=== PATIENT | female | born 1985 | race Caucasian/White ===

== ENCOUNTER 2022-12-24 10:10 | Outpatient (CLI) | payer BC, SELFPAY ==
--- OUTSIDE RECORDS SUMMARY | 2022-12-24 10:13 | XMS_ITS ---
Author Name Britt Gonzalez Address [address] [place] [address] Organization [facility] Address [address] [place] [address] Care Team Providers Care Assistant Professor Of Surgery Name Role Phone Britt Gonzalez Unavailable [phone] PROBLEMS Type Condition ICD9-CM Code [id number] Code Onset Dates Condition Status SNOMED Code Problem Syncope and collapse R55 Active [id number] ALLERGIES Substance Reaction Event Type Date Status Ativan Unknown Drug Allergy Nov, Active Benzodiazepines Unknown Drug Allergy Nov, Activ e Adhesive rash Drug Allergy Nov, Active Ambien Unknown Drug Allergy Nov, Active ENCOUNTERS Encounter Location Date Diagnosis [facility] [address] [place] [address] Nov, Syncope and collapse R55 [facility] [address] [place] [phone] Oct, [facility] [address] [place] [address] Feb, [facility] [address] [place] [phone] Jan, [facility] [address] [place] [address] Jan, [facility] [address] [place] [address] Nov, [facility] [address] [place] [address] Oct, [facility] [address] [place] [address] Oct, [facility] [address] [place] [address] Aug, IMMUNIZATIONS No Known Immunizations SOCIAL HISTORY Never Assessed REASON FOR REFERRAL FUNCTIONAL STATUS PLAN OF CARE Activity Details Follow Up 1 Year Reason: Future Test HEPATIC FUNCTION VICENTE EL 20221118 Future Test CBC (H/H, RBC, INDIC ES, WBC, PLT) 20221118 Future Test LAMOTRIGINE 20221118 VITAL SIGNS Weight 68.2 kg 2022-11-18 Weight 64.8 kg 2021-10-25 Height 65 in 2022-11-18 Height 65 in 2021-10-25 Heart Rate 90 /min 2021-10-25 BMI 25.02 kg/m2 2022-11-18 BMI 23.77 kg/m2 2021-10-25 Blood pressure systolic 98 mm Hg Blood pressure diastolic 63 mm Hg 2021-10 MEDICATIONS Medication Instructions Dosage Frequency Start Date End Date Duration Status lamoTRIgine ER 100 MG orally twice a day 1 tablet 12h 30 days Active QUEtiapine Fumarate 100 MG Orally Once a day 1 tablet at bedtime 24h 30 day(s) Active busPIRone HCl 10 MG Orally twice a day (bid) 1 tablet Active Ambien CR 12.5 MG Orally Once a day 1 tablet at bedtime as needed 24h Active Vistaril 25 MG Orally Once a day 1 capsule at bedtime as needed 24h 30 day(s) Active PROCEDURES Procedure Date Ordered Result Body Site VEEG EA 12-26HR INTMT MNTR November 29, 2021 EEG CONT REC W/VID SEGMENT PRODUCER November 29, 2021 EEG PHY/QHP EA INCR W/VEEG November 28, 2021 HOSPITAL DISCHARGE DAY Dec 04, 2021 VEEG EA 12-26HR INTMT MNTR November 28, 2021 PSYCL TST EVAL PHYS/QHP EA November 29, 2021 [facility] November 29, 2021 PSYCL/NRPSYC TST PHY/QHP November 29, 2021 VEEG EA 12-26HR CONT MNTR December 01, 2021 VEEG EA 12-26HR CONT MNTR November 30, 2021 EEG PHY/QHP EA INCR W/VEEG December 02, 2021 VEEG EA 12-26HR INTAZ MNTR Dec 03, 2021 VEEG EA 12-26HR INTAZ MNTR December 02, 2021 EEG PHY/QHP EA INCR W/VEEG November 30, 2021 PSYCL TST EVAL PHYS/QHP November 29, 2021 EEG PHY/QHP EA INCR W/VEEG December 01, 2021 VEEG EA 12-26HR INTMT MNTR November 30, 2021 EEG PHYS/QHP 2-12 HR W/VEEG Dec 04, 2021 VEEG 2-12 HR INTAZ MNTR Dec 04, 2021 EEG PHY/QHP EA INCR W/VEEG Dec 03, 2021 EEG CONT REC W/VID SEGMENT PRODUCER November 28, 2021 EEG PHY/QHP EA INCR W/VEEG November 29, 2021 RESULTS Name Result Date Reference Range HEPATIC FUNCTION PANEL 2022-12-02 PROTEIN, TOTAL ALBUMIN GLOBULIN ALBUMIN/GLOBULIN RATIO BILIRUBIN, TOTAL BILIRUBIN, DIRECT BILIRUBIN, INDIRECT ALKALINE PHOSPHATASE 74 AST 19 ALT 11 CBC (H/H, RBC, INDICES, WBC, PLT) 2022-11 MPV WHITE BLOOD CELL COUNT RED BLOOD CELL COUNT HEMOGLOBIN 12.0 HEMATOCRIT MCV MCH MCHC RDW PLATELET COUNT 175 LAMOTRIGINE 2022-12-02 LAMOTRIGINE 7.2 REASON FOR VISIT Yearly F/U, Needs appt and meds refills , lamoTRIgine ER 100 MG Tablet Extended Release 24 Hour, Follow-up for unspecified spells, SCANNED IN - Medical records request, ARRIVE AT 9:15, New patient referral, EEG and review of results, Keely-new patient referral, [address], New pt referral Insurance Providers Health Insurance Type Health Plan Insurance Address Health Plan Insurance Phone Health Plan Insurance Name Health Plan Coverage Dates Member ID Patient Relationship to Subscriber Patient Address Patient Phone Patient Name Patient Date of Subscriber ID Subscriber Name Subscriber Date of Group No [facility] [id number] [address] [address] [facility] [id number] [facility] [place] en [id number]
== END 2022-12-24 10:11 | disposition home or self-care (01) ==
PROVIDERS: PCP Family Medicine; Visit Provider Family Medicine
DX: Z00.00 Encounter for general adult medical examination without abnormal findings (principal); N95.1 Menopausal and female climacteric states; R53.83 Other fatigue; R68.82 Decreased libido; F41.9 Anxiety disorder, unspecified; D64.9 Anemia, unspecified
CPT/HCPCS: 80053; 82607; 82728; 83001; 83540; 83550; 84443

== ENCOUNTER 2023-01-24 13:54 | Outpatient (CLI) | payer BC, SELFPAY ==
--- OUTSIDE RECORDS SUMMARY | 2023-01-24 14:05 | XMS_ITS ---
Author Name Britt Gonzalez Address [address] [place] [address] Organization [facility] Address [address] [place] [address] Care Team Providers Care Carpet Floor Layer Apprentice Name Role Phone Britt Gonzalez Unavailable [phone] PROBLEMS Type Condition ICD9-CM Code [id number] Code Onset Dates Condition Status SNOMED Code Problem Syncope and collapse R55 Active [id number] ALLERGIES Substance Reaction Event Type Date Status Ativan Unknown Drug Allergy Nov, Active Benzodiazepines Unknown Drug Allergy Nov, Activ e Adhesive rash Drug Allergy Nov, Active Ambien Unknown Drug Allergy Nov, Active ENCOUNTERS Encounter Location Date Diagnosis [facility] [address] [place] [address] Nov, Syncope and collapse R55 [facility] [address] [place] [phone] Oct, [facility] [address] [place] [address] Feb, [facility] [address] [place] [phone] Jan, [facility] [address] [place] [address] Jan, [facility] [address] [place] [address] Nov, [facility] [address] [place] [address] Oct, [facility] [address] [place] [address] Oct, [facility] [address] [place] [address] Aug, IMMUNIZATIONS No Known Immunizations SOCIAL HISTORY [...] November 29, 2021 EEG CONT REC W/VID MOLECULAR TECHNOLOGIST November 29, 2021 EEG PHY/QHP EA INCR W/VEEG November 28, 2021 HOSPITAL DISCHARGE DAY Dec 04, 2021 VEEG EA 12-26HR INTMT MNTR November 28, 2021 PSYCL TST EVAL PHYS/QHP EA November 29, 2021 [facility] 29, 2021 PSYCL/NRPSYC TST PHY/QHP November 29, 2021 VEEG EA 12-26HR CONT MNTR December 01, 2021 VEEG EA 12-26HR CONT MNTR November 30, 2021 EEG PHY/QHP EA INCR W/VEEG December 02, 2021 VEEG EA 12-26HR INTPR MNTR Dec 03, 2021 VEEG EA 12-26HR INTPR MNTR December 02, 2021 EEG PHY/QHP EA INCR W/VEEG November 30, 2021 PSYCL TST EVAL PHYS/QHP November 29, 2021 EEG PHY/QHP EA INCR W/VEEG December 01, 2021 VEEG EA 12-26HR INTMT MNTR November 30, 2021 EEG PHYS/QHP 2-12 HR W/VEEG Dec 04, 2021 VEEG 2-12 HR INTPR MNTR Dec 04, 2021 EEG PHY/QHP EA INCR W/VEEG Dec 03, 2021 EEG CONT REC W/VID MOLECULAR TECHNOLOGIST November 28, 2021 EEG PHY/QHP EA INCR [...] Subscriber Name Subscriber Date of Group No [facility] [id number] [address] [address] [facility] [id number] [facility] [place] en [id number]
== END 2023-01-24 13:55 | disposition home or self-care (01) ==
PROVIDERS: PCP Family Medicine; Visit Provider Obstetrics & Gynecology
DX: R68.82 Decreased libido (principal); D64.9 Anemia, unspecified; R53.83 Other fatigue; E28.39 Other primary ovarian failure; F52.0 Hypoactive sexual desire disorder
CPT/HCPCS: 81243; 84270; 84402; 84403; 86255; 86376; 88262

== ENCOUNTER 2023-02-05 13:34 | Outpatient (CLI) | payer BC, SELFPAY ==
--- NOTE | 2023-02-05 14:00 | CRLHL7_ITS ---
For Patients: As a result of the Cures Act, medical imaging exams and procedure reports are released immediately into your electronic medical record. You may view this report before your referring provider. If you have questions, please contact your health care provider. DXA BONE MINERAL DENSITY STUDY, 02/07/2023 Reason for exam: Primary ovarian failure. Current height (inches): 65.0 Weight (lbs.): 162.0 Menopause age: 28 Ethnicity: White 1. Have you had a previous hip or vertebral fracture? Yes. 2. Have you had any fractures during your adult life which did not result from significant trauma (e.g., auto accident)? Yes. 3. Did either of your parents have a hip fracture? No. 4. Do you smoke? No. 5. Have you ever taken Glucocorticoids? No. 6. Do you have rheumatoid arthritis? No. 7. Do you have secondary osteoporosis? No. 8. Do you drink 3 or more alcoholic drinks per day? No. 9. Are you being treated for osteoporosis? No. 10. Have you ever taken any of the following medications: Actonel, Evista, Fosamax, Miacalcin, Reclast, Boniva, Forteo, HRT (i.e., estrogen/hormone therapy), Protelos, Prolia, Vitamin D, Calcium, other ??? please specify. ANSWER: Yes; HRT. 11. Do you have any of the following medical conditions: Anorexia or bulimia, asthma or emphysema, end stage renal disease, hyperparathyroidism, any seizure disorders, cancer, inflammatory bowel diseases, hysterectomy, other ??? please specify. ANSWER: Yes; Seizure disorder, hysterectomy. 12. What was your maximum height (inches)? 65. 13. Do you perform weightbearing exercise regularly? No. 14. Do you regularly consume dairy products? Yes. 15. Do you drink caffeinated beverages? Yes. 16. At what age did your period start? 9. 17. Are you premenopausal? No. 18. How many full-term pregnancies have you had? 2. 19. Have you ever missed your period for more than 6 months in a row (not including or menopause)? No. TECHNIQUE: Bone mineral density study was performed using the Vimessa. FINDINGS: The results of the study expressed as bone mineral density (BMD) are as follows: Lumbar Spine L1 to L4: BMD: 0.850 g/cm2. T-score: -1.8. Z-score: -1.6. Neck Left: BMD: 0.711 g/cm2. T-score: -1.2. Z-score: -1.0. Right: BMD: 0.762 g/cm2. T-score: -0.8. Z-score: -0.5. Total Left: BMD: 0.918 g/cm2. T-score: -0.2. Z-score: 0.0. Right: BMD: 0.880 g/cm2. T-score: -0.5. Z-score: -0.4. IMPRESSION: Osteopenia. DAVID NAJERA M.D. Diagnostic Radiologist [email or web address] Transcribed: 4:[address]/Dictated by: David Najera MD @ 02/07/2023 3:34:00 PM (Electronically Signed)
== END 2023-02-05 13:35 | disposition home or self-care (01) ==
LOC: RAD 13:35
PROVIDERS: PCP Family Medicine; Visit Provider Obstetrics & Gynecology
DX: E28.39 Other primary ovarian failure (principal); M85.89 Other specified disorders of bone density and structure, multiple sites
CPT/HCPCS: 77080

== ENCOUNTER 2023-03-07 08:17 | Outpatient (CLI) | payer BC, SELFPAY ==
--- OUTSIDE RECORDS SUMMARY | 2023-03-12 07:13 | XMS_ITS | Patient Health Record ---
Author Name Unknown Organization Unknown Care Team Providers Care Check Totaler Name Role Phone Coby FLOYD, Nicolasa Primary Care Provider Britt Lopes Unavailable [phone] ALLERGIES Allergen (clinical drug ingredient) Drug/Non Drug Allergy documented on EMR Reaction Allergy Type Onset Date Status zolpidem Ambien Unknown Drug Allergy Active lorazepam Ativan Unknown Drug Allergy Active Adhesive rash Allergy Active benzodiazepine (FN) Benzodiazepines Unknown Drug Allergy Active RESULTS Component Value Reference Range Notes HEPATIC FUNCTION PANEL Reviewed date:12/03/2022 04:23:19 PM Interpretation: Performing Lab: Notes/Report: PROTEIN, TOTAL ALBUMIN GLOBULIN ALBUMIN/GLOBULIN RATIO BILIRUBIN, TOTAL BILIRUBIN, DIRECT BILIRUBIN, INDIRECT ALKALINE PHOSPHATASE 74 AST 19 ALT 11 CBC (H/H, RBC, INDICES, WBC, PLT) Reviewed date:12/03/2022 04:24:45 PM Interpretation: Performing Lab: Notes/Report: MPV WHITE BLOOD CELL COUNT RED BLOOD CELL COUNT HEMOGLOBIN 12.0 HEMATOCRIT MCV MCH MCHC RDW PLATELET COUNT 175 LAMOTRIGINE Reviewed date:12/03/2022 04:22:19 PM Interpretation: Performing Lab: Notes/Report: LAMOTRIGINE 7.2 REASON FOR REFERRAL No Information MEDICATIONS Medication SIG (Take, Route, Frequency, Duration) Notes Start Date End Date Status busPIRone HCl 10 MG 1 tablet Orally twic e a day (bid) Active Ambien CR 12.5 MG 1 tablet at bedtime as needed Orally Once a day Active lamoTRIgine ER 100 MG 1 tablet orally tw ice a day for 30 days Active QUEtiapine Fumarate 100 MG 1 tablet at b edtime Orally Once a day for 30 day(s) Active Vistaril 25 MG 1 capsule at bedtime as needed Orally Once a day for 30 day(s) Active VITAL SIGNS Height-cm 165.1 cm 11/18/2022 Height 65 in 11/18/2022 Weight 68.2 kg 11/18/2022 BMI 25.02 kg/m2 11/18/2022 Encounters Encounter Location Date Provider Diagnosis [facility] [address] [place] [address] 11/18/2022 Britt Gonzalez Syncope and collapse R55 [facility] [address] [place] [address] 10/28/2022 Britt Gonzalez ASSESSMENTS Encounter Date Diagnosis Assessment Notes Treatment Notes Treatment Clinical Notes 11/18/2022 Syncope and collapse (ICD-10 - R55) PLAN OF TREATMENT No Information Insurance Providers Payer Name Payer Address Payer Phone Subscriber Number Group Number Insured Name Patient Relationship to Insured Coverage Start Date Coverage End Date [facility] [id number] [address] [address] [place], [place] [phone] [id number] Ethan philippe Yaron Self - patient is the insured MEDICAL (GENERAL) HISTORY Medical History History ICD Code Recurrent syncopal episodes Generalized anxiety disorder Menorrhagia Attention deficit hyperactivity disorder (ADHD) Anxiety and depression Atrial fibrillation Arrhythmia S/P section Nephrolithiasis Dysfunctional labor distress affecting management of m other, antepartum Idiopathic thrombocythemia, Has not had this problem since 8 years old Kidney stones History of smoking, She quit smoking michelle und 2000 Lymphocytic colitis Weight loss Lumbar laminectomy Hysterectomy C-sections x2 Ureter stent Surgical History Surgery Date(Month/Year) Hysterectomy, 07/14/2013. APPENDECTOMY, 2008. SECTION x2, 2011, 2013. COLONOSCOPY SCREENING x3. LAMINECTOMY. LUI AND BSO. TUBAL LIGATION, 2013. Urinary stent. WISDOM TEETH EXTRACTION Hospitalization History Reason Date(Month/Year) Syncope - [facility], 11/22/2019.
== END 2023-03-07 08:18 | disposition home or self-care (01) ==
LOC: NFLDREF 03-12 07:11
PROVIDERS: PCP Family Medicine; Referring Provider Family Medicine; Visit Provider Obstetrics & Gynecology
DX: F52.0 Hypoactive sexual desire disorder (principal)
CPT/HCPCS: 84403

== ENCOUNTER 2024-02-10 15:13 | Outpatient (CLI) | payer BC, SELFPAY ==
--- OUTSIDE RECORDS SUMMARY | 2024-02-10 15:16 | XMS_ITS | Clinical Summary ---
Author Organization [facility] Address [place], [place] [address] Care Team Providers Care Solar Panel Technician Name Role Phone Nicolasa Tenorio MD Primary Care Provider + Allergies Active Allergy Reactions Criticality Noted Date Comments Adhesive Rash Medium 08/03/2010 Zolpidem *Unknown 06/22/2012 When mixed with Ativan she passes out Lorazepam 04/11/2009 When mixed with Ambien She Passes out Medications Medication Sig Dispensed Refills Start Date End Date Status busPIRone (BUSPAR) 10 mg tablet Take 10 mg by mouth in the morning and 10 mg in the evening. 06/05/2021 Active QUEtiapine (SEROQUEL) 100 mg tablet Take 100 mg by mouth at bedtime. 10/30/2021 Active zolpidem CR (AMBIEN CR) 12.5 mg Extended-Release tablet Take 12.5 mg by mouth at bedtime. 10/16/2021 Active busPIRone (BUSPAR) 10 mg tablet Take 10 mg by mouth once daily if needed for Anxiety. Active lamoTRIgine (LAMICTAL XR) 100 mg Extended-Release tabletIndications:Spel l of loss of consciousness Take 1 Tablet (100 mg) by mouth twice daily 60 Tablet 2 12/03/2021 Active Active Problems Problem Noted Date Diagnosed Date Spells of loss of consciousness 11/30/2021 Frequent falls 11/30/2021 Generalized anxiety disorder 10/05/2018 Menorrhagia 07/15/2013 S/P section 07/30/2012 Nephrolithiasis 06/22/2012 Dysfunctional labor 07/30/2010 distress affecting management of mother, a ntepartum 07/30/2010 Immunizations Name Administration Dates Next Due DTP 08/21/1988,08/27/1985 DTaP 07/10/2006,07/26/2005 Hepatitis B (Adult) 06/15/2000,12/27/1999,1998 Hepatitis B, Unspecified 06/15/2000,12/27/1999,0 11/10/1998 Influenza Virus, Unspecified 02/16/2013,04/03/20 12,01/31/2010 Influenza, High-dose Inactivated 02/16/2013 Influenza, IIV3 (Age 6-35 mos) 02/07/2018,2012 Influenza, IIV3 (Age >=3 years) 04/03/2012 MMR 01/02/1995,12/03/1988,01/14/1985 Oral Polio Vaccine 08/21/1988,08/27/1985 TD, UNSPECIFIED 05/05/1998 Td (Age >=7 Years) 05/05/1998 Td, Preservative Free (age >= 7 Years) 9 Tdap 08/03/2010,07/10/2006 Family History Medical History Relation Name Comments Good Health Daughter Alcohol/Drug Father Psychiatric illness Father cd issue s Psychiatric illness Maternal Grandfather Cancer Maternal Grandmother Skin CA Diabetes Maternal Grandmother Psychiatric illness Paternal Grandmother Good Health Son Clotting disorder No Family History Relation Name Status Comments Brother 1 Alive Brother 2 Alive Daughter Father Alive Maternal Grandfather Alive Maternal Grandmother Alive Mother Alive Paternal Grandfather Alive Paternal Grandmother Alive Sister 1 Alive Sister 2 Alive Son Social History Tobacco Use Types Packs/Day Years Used Date Smoking Tobacco: Former Cigarettes Q uit: 06/22/1999 Smokeless Tobacco: Never Tobacco Cessation:Counseling Given: Yes Alcohol Use Standard Drinks/Week Comments No 0 (1 standard drink = 0.6 oz pur e alcohol) PHQ-2 Answer Date Recorded PHQ-2 Score 0 10/05/2018 Social Connections Answer Date Recorded Frequency of Communication with Friends and Fami ly Not on file 02/18/2023 Financial Resource Strain Answer Date R ecorded Difficulty of Paying Living Expenses Not on file 05/05/2021 Difficulty of Paying Living Expenses Not on file 05/05/2021 Sex and Gender Information Value Date Recorded Sex Assigned at Not on file Gender Identity Not on file Sexual Orientation Not on file Obstetrics History Para Term AB IAB SAB Ectopic Multiple Livin g Live Births 2 2 0 2 0 0 0 0 0 2 2 Date Outcome GA Total Labor Labor/2nd/3rd Weight Sex Type Anes PTL Krysta A1 A5 Name Clin 011 36w 6d 3.05 kg (6 lb 11.6 oz) M C-Sec tion Spinal Livin g 9 9 Trig Delivery Location[facility] Comments:PROM 013 36w 4d 2.88 kg (6 lb 5.6 oz) F C-Sec tion Spinal N Livin g 9 10 BG Comments:SGA, failed B PP Last Filed Vital Signs Vital Sign Reading Time Taken Comments Blood Pressure 104/53 12/04/2021 9:00 AM CDT Pulse 79 12/04/2021 9:00 AM CDT Temperature 36.7 ??C (98 ??F) 12/04/2021 9:00 AM CDT Respiratory Rate 18 12/04/2021 9:00 AM CDT Oxygen Saturation 98% 12/04/2021 9:00 AM CDT Inhaled Oxygen Concentration - - Weight 64.4 kg (142 lb) 11/28/2021 10:00 AM CDT Height 167.6 cm (5' 6) 11/28/2021 10:00 AM CDT Body Mass Index 22.92 11/28/2021 10:00 AM CDT Plan of Treatment Health Maintenance Due Date Last Done Comments HIV for age 15-65 08/07/1998 Hepatitis C screening for age 18-79 08/07/2001 Depression screening for age 12+ 10/06/2019 10/05/2018, 09/10/2018, 09/01/2018, Additional history exists BMI (ht and wt on same day) for age 18+ 03/22/2021 03/22/2020, 03/03/2020, 12/13/2019, Additional history exists COVID-19 vaccine series (2023- season) 2024 Influenza for age 9-49 01/04/2024 10/15/201 3, 04/03/2012, 04/03/2012, Additional history exists Tetanus booster 06/22/2028 06/22/2018, 04/0 05/2010, 07/10/2006, Additional history exists Tdap Completed 08/03/2010, 07/10/2006 Pneumococcal series for age 6-64 Aged Out No longer eligible based on patient's age to complete this topic Advance Directives * Full Code (Latest Code Status on File) Date Activated Date Inactivated Comments 11/28/2021 9:26 AM 12/04/2021 1:57 PM Question Answer Comments Code Status Discussion: Other * Full Code Date Activated Date Inactivated Comments 12/23/2019 2:14 PM 12/23/2019 8:12 PM Question Answer Comments Code Status Discussion: Not Discussed * Full Code Date Activated Date Inactivated Comments 05/10/2019 8:06 AM 05/10/2019 12:48 PM Question Answer Comments Code Status Discussion: Per Existing Order * Full Code Date Activated Date Inactivated Comments 09/14/2015 6:22 PM 09/15/2015 8:35 PM * Full Code Date Activated Date Inactivated Comments 07/14/2013 2:07 PM 07/18/2013 1:50 PM Care Teams Solar Panel Technician Relationship Specialty Start Date End Date Nicolasa Tenorio MD [address] [place] [address] PCP - General Family Practice 11/03/19
--- OUTSIDE RECORDS SUMMARY | 2024-02-10 15:16 | XMS_ITS | Referral Summary ---
Author Organization [place] Address [address] [place] [address] Care Team Providers Care City Route Driver Name Role Phone [facility] [place] Primary [facility] Pro vider Allergies Active Allergy Reactions Criticality Noted Date Comments Zolpidem 06/21/2015 Benzodiazepines Fatigue 12/14/2003 Ativan Medications Medication Sig Dispensed Refills Start Date End Date Status AMOXICILLIN PO Active Active Problems Problem Noted Date Diagnosed Date Depressive disorder, not elsewhere classified Insomnia 04/13/2005 Overview: Problem list name updated by automated process. Provider to review Immunizations Name Administration Dates Next Due HepB 06/15/2000,12/27/1999,11/10/1998 Influenza (IIV3) PF 03/29/2002,04/16/2001 TD,PF 7+ (Tenivac) 12/31/1995 Social History Tobacco Use Types Packs/Day Years Used Date Smoking Tobacco: Former Comments:smoked casually for a very short time Alcohol Use Standard Drinks/Week Comments Yes 0 (1 standard drink = 0.6 oz pur e alcohol) <once/monthly Adolescent Education Answer Date Record ed Getting School Help Needed Not on file 02/09 Sex and Gender Information Value Date Recorded Sex Assigned at Not on file Gender Identity Not on file Sexual Orientation Not on file Last Filed Vital Signs Vital Sign Reading Time Taken Comments Blood Pressure 118/80 08/21/2021 7:57 PM CDT Pulse 101 08/21/2021 2:14 PM CDT Temperature 36.9 ??C (98.4 ??F) 08/21/2021 2:14 PM CD T Respiratory Rate 18 08/21/2021 2:14 PM CDT Oxygen Saturation 99% 08/21/2021 7:57 PM CDT Inhaled Oxygen Concentration - - Weight 60.3 kg (133 lb) 03/22/2005 10:15 AM TIME STUDY OBSERVER Height 165.1 cm (5' 5) 03/02/2005 8:00 AM CDT Body Mass Index 22.13 03/02/2005 8:00 AM CDT Plan of Treatment Not on file Procedures Procedure Name Priority Date/Time Associated Diagnosis Comments COMPREHENSIVE METABOLIC PANEL STAT 06/21/2015 11:29 PM TIME STUDY OBSERVER CL AFF A.M.A. LIPID PANEL Routine 03/02/2005 8:45 AM CDT Routine Medical Exam HCL PAP THIN LAYER SCREEN Routine 03/02/2005 12:00 AM CDT Routine Medical Exam from Last 3 Months or Most Recently Relevant to Health Maintenance Results * Comprehensive metabolic panel (06/21/2015 11:29 PM TIME STUDY OBSERVER) Sodium 139 133 - 144 mmol/L [facility] Potassium 3.8 3.4 - 5.3 mmol/L [facility] Comment:Specimen slightly he molyzed, potassium may be falsely elevated Chloride 106 94 - 109 mmol/L [facility] Carbon Dioxide 27 20 - 32 mmol/L [facility] Anion Gap 6 3 - 14 mmol/L [facility] Glucose 90 70 - 99 mg/dL [facility] Urea Nitrogen 11 7 - 30 mg/dL [facility] Creatinine 0.56 0.52 - 1.04 mg/dL [facility] GFR Estimate >90 Non GFR Calc >60 mL/min/1. 7m2 [facility] GFR Estimate If Black >90 GFR Calc >60 mL/min/1. 7m2 [facility] Calcium 8.6 8.5 - 10.1 mg/dL [facility] Bilirubin Total 0.2 0.2 - 1.3 mg/dL [facility] Albumin 4.0 3.4 - 5.0 g/dL [facility] Protein Total 8.2 6.8 - 8.8 g/dL [facility] Alkaline Phosphatase 74 40 - 150 U/L [facility] ALT 29 0 - 50 U/L [facility] AST 20 0 - 45 U/L [facility] Comment:Reviewed, acceptable Blood specimen (specimen) 06/21/2015 11:29 PM TIME STUDY OBSERVER 06/21/2015 11:49 PM TIME STUDY OBSERVER Isha Ruiz MD LAB - BLOOD ORDERABL ES Performing Organization Address City/[facility] Co de Phone Number [facility] [address] [phone] * A.M.A. LIPID PANEL (03/02/2005 8:45 AM CDT) Cholesterol 126 0 - 200 mg/dL [facility] Comment: Cholesterol Reference Range: <200 ??The NCEP recommends further ? evaluation of: ? 1. ??Patients with cholesterol ? greater than 200 mg/dL ? if additional risk factors ? are present. ? 2. ??All patients with a ? cholesterol greater than ? 240 mg/dL. Triglycerides 43 0 - 150 mg/dL [facility] HDL Cholesterol 52 >40 mg/dL [facility] LDL Cholesterol Calculated 66 0 - 129 mg/dL [facility] VLDL-Cholesterol 9 0 - 30 mg/dL [facility] Cholesterol/HDL Ratio 2.4 0.0 - 5.0 [facility] 03/02/2005 8:45 AM CDT 03/02/2005 8:50 AM CDT Kelly Matthew PA-C LABORATORY Performing Organization Address City/[facility]/ZIP Co de Phone Number [facility] * (ABNORMAL) A THIN LAYER PAP SCREEN (03/02/2005 12:00 AM CDT) PAP LSIL(A) COPATH Copath Report Patient Name: ANDRES WOOD MR#: [id number] Specimen #: [id number] Collected: 03/02/2005 Received: 03/04/2005 Reported: 03/07/2005 10:41 Ordering Phy(s): KELLY MATTHEW SPECIMEN/STAIN PROCESS: Pap thin layer prep screening (SurePath) ? Pap-Cyto x 1, Reflex HPV x 1 SOURCE: Cervical, endocervical Pap thin layer prep screening (SurePath) SPECIMEN ADEQUACY: Satisfactory for evaluation. -Transitional zone component present. CYTOLOGIC INTERPRETATION: Epithelial Cell Abnormality: ??Squamous Cell: ??Low-grade squamous intraepithelial lesion (LSIL) encompassing: ??HPV/ mild dysplasia/ JAYMIE 1. Electronically signed out by: Kareem Landin M.D. Processed and screened at [facility], [facility] CLINICAL HISTORY: injection Depo-Provera, Previous normal pap Date of Last Pap: 01-06, TESTING LAB LOCATION: [address] ??[phone] COLLECTION SITE: Client: ??[facility] Location: CRFP (R) COPATH 03/02/2005 03/04/2005 10: 17 AM TIME STUDY OBSERVER Kelly Matthew PA-C LABORATORY COPATH from Last 3 Months or Most Recently Relevant to Health Maintenance Care Teams City Route Driver Relationship Specialty Start Date End Date [facility], [facility] [address] [place] [address] PCP - General 06/22/15
--- OUTSIDE RECORDS SUMMARY | 2024-02-10 15:16 | XMS_ITS | Encounter Summary ---
Author Organization [place] Address [address] [place] [address] Care Team Providers Care Jira Administrator Name Role Phone [facility] Primary Care Pro vider Encounter Details Date Type Department Care Team (Late st Contact Info) Description 08/22/2021 Documentation Only INTERFACED REPORT Unknown, Provider Social History Tobacco Use Types Packs/Day Years Used Date Smoking Tobacco: Former Comments:smoked casually for a very short time Alcohol Use Standard Drinks/Week Comments Yes 0 (1 standard drink = 0.6 oz pur e alcohol) <once/monthly Sex and Gender Information Value Date Recorded Sex Assigned at Not on file Gender Identity Not on file Sexual Orientation Not on file COVID-19 Exposure Response Date Recorded In the last 10 days, have yo u been in contact with someone who was confirmed or suspected to have Coronavirus/COVID-19? No / Unsure 08/21/2021 2:08 PM CDT documented as of this encounter Plan of Treatment Not on file documented as of this encounter Visit Diagnoses Not on filedocumented in this encounter Care Teams Jira Administrator Relationship Specialty Start Date End Date [facility] [address] [place] [address] PCP - General 06/22/15 documented as of this encounter
--- OUTSIDE RECORDS SUMMARY | 2024-02-10 15:16 | XMS_ITS | Clinical Summary ---
Author Organization [place] Address [address] [place] [address] Care Team Providers Care Tablet Making Machine Operator Helper Name Role Phone [facility] [place] Primary Care Pro vider Allergies Active Allergy [...] (IIV3) PF 03/29/2002,04/16/2001 TD,PF 7+ (Tenivac) 12/31/1995 Family History Medical History Relation Comments Hypertension Maternal Aunt Diabetes Maternal Grandfather great Breast Cancer Maternal Grandmother great Diabetes Maternal Grandmother great Genetic Disorder Mother narcolepsy Cancer - colorectal No family hx of Cerebrovascular Disease No family hx of Relation Status Comments Father Alive Maternal Aunt Maternal Grandfather Maternal Grandmother Mother Alive Social History Tobacco Use Types Packs/Day Years [...] 60.3 kg (133 lb) 03/22/2005 10:15 AM ELECTRICIAN DECK Height 165.1 cm (5' 5) 03/02/2005 8:00 AM CDT Body Mass Index 22.13 03/02/2005 8:00 AM CDT Plan of Treatment Health Maintenance Due Date Last Done Comments ADVANCE CARE PLANNING 1983 ANNUAL REVIEW OF HM ORDERS 1983 MAMMO SCREENING 1983 HIV SCREENING 08/07/1998 HEPATITIS C SCREENING 08/07/2001 YEARLY PREVENTIVE VISIT 03/02/2006 03/02/2005, 01/09 PAP 03/02/2008 03/02/2005, 01/10/2004 GLUCOSE 06/21/2018 06/21/2015, 02/13/2005 PHQ-2 (once per calendar year) 2023 LIPID 2023 03/02/2005 COVID-19 Vaccine ( season) 2024 INFLUENZA VACCINE (#1) 2024 9, 02/07/2018, 02/19/2013, Additional history exists DTAP/TDAP/TD IMMUNIZATION (8 - Td or Tdap) 06/22/2028 06/22/2018, 08/03/2010, 07/10/2006, Additional history exists HEPATITIS B IMMUNIZATION Completed 001, 06/15/2000, 06/15/2000, Additional history exists HPV IMMUNIZATION Aged Out No longer e ligible based on patient's age to complete this topic MENINGITIS IMMUNIZATION Aged Out No l onger eligible based on patient's age to complete this topic Pneumococcal Vaccine: Pediatrics (0 to 5 Years) and At-Risk Patients (6 to 64 Years) Aged Out No longer eligible based on patient's age to complete this topic RSV MONOCLONAL ANTIBODY Aged Out No l onger eligible based on patient's age to complete this topic Procedures Procedure Name Priority Date/Time Associated Diagnosis Comments COMPREHENSIVE METABOLIC PANEL STAT 06/21/2015 11:29 PM ELECTRICIAN DECK CL AFF A.M.A. LIPID PANEL Routine 03/02/2005 8:45 AM CDT Routine Medical Exam HCL PAP THIN LAYER SCREEN Routine 03/02/2005 12:00 AM CDT Routine Medical Exam from Last 3 Months or Most Recently Relevant to Health Maintenance Results * Comprehensive metabolic panel (06/21/2015 11:29 PM ELECTRICIAN DECK) Sodium 139 133 - 144 mmol/L [facility] Potassium 3.8 3.4 - 5.3 mmol/L [facility] Comment:Specimen slightly he molyzed, potassium may be falsely elevated Chloride 106 94 - 109 mmol/L [facility] Carbon Dioxide 27 20 - 32 mmol/L [facility] Anion Gap 6 3 - 14 mmol/L [facility] Glucose 90 70 - 99 mg/dL [facility] Urea Nitrogen 11 7 - 30 mg/dL [facility] Creatinine 0.56 0.52 - 1.04 mg/dL [facility] GFR Estimate >90 Non GFR Calc >60 mL/min/1. 7m2 [facility] GFR Estimate If Black >90 GFR Calc >60 mL/min/1. 7m2 [facility] Calcium 8.6 8.5 - 10.1 mg/dL [facility] Bilirubin Total 0.2 0.2 - 1.3 mg/dL [facility] Albumin 4.0 3.4 - 5.0 g/dL [facility] Protein Total 8.2 6.8 - 8.8 g/dL [facility] Alkaline Phosphatase 74 40 - 150 U/L [facility] ALT 29 0 - 50 U/L [facility] AST 20 0 - 45 U/L [facility] Comment:Reviewed, acceptable Blood specimen (specimen) 06/21/2015 11:29 PM ELECTRICIAN DECK 06/21/2015 11:49 PM ELECTRICIAN DECK Isha Ruiz MD LAB - BLOOD ORDERABL ES Performing Organization Address City/[facility] Co de Phone Number [facility] [address] [place] [address], [facility] [phone] * A.M.A. LIPID PANEL (03/02/2005 8:45 AM CDT) Cholesterol 126 0 - 200 mg/dL [facility] Comment: Cholesterol Reference Range: <200 ??The NCEP recommends further ? evaluation of: ? 1. ??Patients with cholesterol ? greater than 200 mg/dL ? if additional risk factors ? are present. ? 2. ??All patients with a ? cholesterol greater than ? 240 mg/dL. Triglycerides 43 0 - 150 mg/dL [facility] HDL Cholesterol 52 >40 mg/dL [facility] LDL Cholesterol Calculated 66 0 - 129 mg/dL [facility] VLDL-Cholesterol 9 0 - 30 mg/dL [facility] Cholesterol/HDL Ratio 2.4 0.0 - 5.0 [facility] 03/02/2005 8:45 AM CDT 03/02/2005 8:50 AM CDT Kelly Matthew PA-C LABORATORY Performing Organization Address City/[facility]/ZIP Co de Phone Number [facility] * (ABNORMAL) A THIN LAYER PAP SCREEN (03/02/2005 12:00 AM CDT) PAP LSIL(A) KAMALJIT Munoz Report Patient Name: ANDRES WOOD MR#: [id number] Specimen #: [id number] Collected: 03/02/2005 Received: 03/04/2005 Reported: 03/07/2005 10:41 [...] Kareem Landin M.D. Processed and screened at [facility], [facility] CLINICAL HISTORY: injection Depo-Provera, Previous normal pap Date of Last Pap: 01-06, TESTING LAB LOCATION: [address] ??[phone] COLLECTION SITE: Client: ??[facility] Location: CRFP (R) COPATH 03/02/2005 03/04/2005 10: 17 AM ELECTRICIAN DECK Kelly Matthew PA-C LABORATORY COPATH from Last 3 Months or Most Recently Relevant to Health Maintenance Care Teams Tablet Making Machine Operator Helper Relationship Specialty Start Date End Date [facility], [facility] [address] [place] [address] PCP - General 06/22/15
== END 2024-02-10 15:14 | disposition home or self-care (01) ==
PROVIDERS: PCP Family Medicine; Visit Provider Family Medicine
DX: R19.4 Change in bowel habit (principal); R19.5 Other fecal abnormalities
CPT/HCPCS: 80053; 82728; 84443

== ENCOUNTER 2024-02-11 09:08 | Outpatient (CLI) | payer BC, SELFPAY ==
--- OUTSIDE RECORDS SUMMARY | 2024-02-11 09:13 | XMS_ITS | Referral Summary ---
Author Organization [place] Address [address] [place] [address] Care Team Providers Care Rd Manager Name Role Phone [facility] [place] Primary Care Pro vider Allergies Active Allergy [...] 60.3 kg (133 lb) 03/22/2005 10:15 AM REGISTERED ASSOCIATE Height 165.1 cm (5' 5) 03/02/2005 8:00 AM CDT Body Mass Index 22.13 03/02/2005 8:00 AM CDT Plan of Treatment Not on file Procedures Procedure Name Priority Date/Time Associated Diagnosis Comments COMPREHENSIVE METABOLIC PANEL STAT 06/21/2015 11:29 PM REGISTERED ASSOCIATE CL AFF A.M.A. LIPID PANEL Routine 03/02/2005 8:45 AM CDT Routine Medical Exam HCL PAP THIN LAYER SCREEN Routine 03/02/2005 12:00 AM CDT Routine Medical Exam from Last 3 Months or Most Recently Relevant to Health Maintenance Results * Comprehensive metabolic panel (06/21/2015 11:29 PM REGISTERED ASSOCIATE) Sodium 139 133 - 144 mmol/L [facility] Potassium 3.8 3.4 - 5.3 mmol/L [facility] Comment:Specimen slightly he molyzed, potassium may be falsely elevated Chloride 106 94 - 109 mmol/L [facility] Carbon Dioxide 27 20 - 32 mmol/L [facility] Anion Gap 6 3 - 14 mmol/L [facility] Glucose 90 70 - 99 mg/dL [facility] Urea Nitrogen 11 7 - 30 mg/dL [facility] Creatinine 0.56 0.52 - 1.04 mg/dL [facility] GFR Estimate >90 Non GFR Calc >60 mL/min/1. 7m2 [facility] GFR Estimate If Black >90 GFR Calc >60 mL/min/1. 7m2 [facility] Calcium 8.6 8.5 - 10.1 mg/dL [facility] Bilirubin Total 0.2 0.2 - 1.3 mg/dL [facility] Albumin 4.0 3.4 - 5.0 g/dL [facility] Protein Total 8.2 6.8 - 8.8 g/dL [facility] Alkaline Phosphatase 74 40 - 150 U/L [facility] ALT 29 0 - 50 U/L [facility] AST 20 0 - 45 U/L [facility] Comment:Reviewed, acceptable Blood specimen (specimen) 06/21/2015 11:29 PM REGISTERED ASSOCIATE 06/21/2015 11:49 PM REGISTERED ASSOCIATE Isha Ruiz MD LAB - BLOOD ORDERABL ES Performing Organization Address City/[facility] Co de Phone Number [facility] [address] [phone] * A.M.A. LIPID PANEL (03/02/2005 8:45 AM CDT) Cholesterol 126 0 - 200 mg/dL [facility] Comment: Cholesterol Reference Range: <200 ??The NCEP recommends further ? evaluation of: ? 1. ??Patients with cholesterol ? greater than 200 mg/dL ? if additional risk factors ? are present. ? 2. ??All patients with a ? cholesterol greater than ? 240 mg/dL. Triglycerides 43 0 - 150 mg/dL [facility] HDL Cholesterol 52 >40 mg/dL [facility] LDL Cholesterol Calculated 66 0 - 129 mg/dL [facility] VLDL-Cholesterol 9 0 - 30 mg/dL [facility] Cholesterol/HDL Ratio 2.4 0.0 - 5.0 [facility] 03/02/2005 8:45 AM CDT 03/02/2005 8:50 AM CDT Kelly Matthew PA-C LABORATORY Performing Organization Address City/[facility]/ZIP Co de Phone Number [facility] * (ABNORMAL) A THIN LAYER PAP SCREEN (03/02/2005 12:00 AM CDT) PAP LSIL(A) COPATH Copath Report Patient Name: ANDRES WOOD MR#: [id number] Specimen #: [id number] Collected: 03/02/2005 Received: 03/04/2005 Reported: 03/07/2005 10:41 [...] Kareem Landin M.D. Processed and screened at [facility] CLINICAL HISTORY: injection Depo-Provera, Previous normal pap Date of Last Pap: 01-06, TESTING LAB LOCATION: [address] ??[phone] COLLECTION SITE: Client: ??[facility] Location: CRFP (R) COPATH 03/02/2005 03/04/2005 10: 17 AM REGISTERED ASSOCIATE Kelly Matthew PA-C LABORATORY COPATH from Last 3 Months or Most Recently Relevant to Health Maintenance Care Teams Rd Manager Relationship Specialty Start Date End Date [facility], [facility] [place] [address] [place] [address] PCP - General 06/22/15
--- OUTSIDE RECORDS SUMMARY | 2024-02-11 09:13 | XMS_ITS | Clinical Summary ---
Author Organization [place] Address [address] [place] [address] Care Team Providers Care Carbon Paper Coating Machine Setter Name Role Phone [facility] [place] Primary Care Pro vider Allergies Active Allergy [...] 60.3 kg (133 lb) 03/22/2005 10:15 AM GRAIN ELEVATOR MAN Height 165.1 cm (5' 5) 03/02/2005 8:00 [...] COMPREHENSIVE METABOLIC PANEL STAT 06/21/2015 11:29 PM GRAIN ELEVATOR MAN CL AFF A.M.A. LIPID PANEL Routine 03/02/2005 8:45 AM CDT Routine Medical Exam HCL PAP THIN LAYER SCREEN Routine 03/02/2005 12:00 AM CDT Routine Medical Exam from Last 3 Months or Most Recently Relevant to Health Maintenance Results * Comprehensive metabolic panel (06/21/2015 11:29 PM GRAIN ELEVATOR MAN) Sodium 139 133 - 144 mmol/L [facility] [...] acceptable Blood specimen (specimen) 06/21/2015 11:29 PM GRAIN ELEVATOR MAN 06/21/2015 11:49 PM GRAIN ELEVATOR MAN Isha Ruiz MD LAB - BLOOD ORDERABL ES Performing Organization Address City/[facility] Co de Phone Number [facility] [address] [place] [address], [facility] [place] [phone] * A.M.A. LIPID PANEL (03/02/2005 8:45 AM CDT) Cholesterol 126 0 - 200 mg/dL [facility] Comment: Cholesterol Reference Range: <200 ??The NCEP recommends further ? evaluation of: ? 1. ??Patients with cholesterol ? greater than 200 mg/dL ? if additional risk factors ? are present. ? 2. ??All patients with a ? cholesterol greater than ? 240 mg/dL. Triglycerides 43 0 - 150 mg/dL [facility] HDL Cholesterol 52 >40 mg/dL [facility] LDL Cholesterol Calculated 66 0 - 129 mg/dL [facility] VLDL-Cholesterol 9 0 - 30 mg/dL [facility] Cholesterol/HDL Ratio 2.4 0.0 - 5.0 [facility] 03/02/2005 8:45 AM CDT 03/02/2005 8:50 AM CDT Kelly Matthew PA-C LABORATORY Performing Organization Address City/[facility]/ZIP Co de Phone Number [facility] * (ABNORMAL) A THIN LAYER PAP SCREEN (03/02/2005 12:00 AM CDT) PAP LSIL(A) KAMALJIT Munoz Report Patient Name: ANDRES WOOD MR#: [id number] Specimen #: [id number] Collected: 03/02/2005 Received: 03/04/2005 Reported: 03/07/2005 10:41 [...] Kareem Landin M.D. Processed and screened at [facility], [facility] CLINICAL HISTORY: injection Depo-Provera, Previous normal pap Date of Last Pap: 01-06, TESTING LAB LOCATION: [address] ??[phone] COLLECTION SITE: Client: ??[facility] Location: CRFP (R) COPATH 03/02/2005 03/04/2005 10: 17 AM GRAIN ELEVATOR MAN Kelly Matthew PA-C LABORATORY COPATH from Last 3 Months or Most Recently Relevant to Health Maintenance Care Teams Carbon Paper Coating Machine Setter Relationship Specialty Start Date End Date [facility], [facility] [address] [place] [place] [address] PCP - General 06/22/15
--- OUTSIDE RECORDS SUMMARY | 2024-02-11 09:13 | XMS_ITS | Clinical Summary ---
Author Organization [facility] Address [place], [place] [address] Care Team Providers Care Improvement Analyst Name Role Phone Nicolasa Tenorio MD Primary [...] Spinal Livin g 9 9 Trig Delivery [facility] Comments:PROM 013 36w 4d 2.88 [...] 2:07 PM 07/18/2013 1:50 PM Care Teams Improvement Analyst Relationship Specialty Start Date End Date Nicolasa Tenorio MD [address] [place] [address] PCP - General Family Practice 11/03/19
--- OUTSIDE RECORDS SUMMARY | 2024-02-11 09:13 | XMS_ITS | Encounter Summary ---
Author Organization [place] Address [address] [place] [address] Care Team Providers Care Fire Dispatcher Name Role Phone [facility] Primary Care Pro vider Encounter Details Date [...] on filedocumented in this encounter Care Teams Fire Dispatcher Relationship Specialty Start Date End Date [facility] [address] [place] [address] PCP - General 06/22/15 documented as of this encounter
--- OUTSIDE RECORDS SUMMARY | 2024-02-11 09:13 | XMS_ITS | Patient Health Record ---
Author Organization [employer] [place] Address [address] [place] [address] Care Team Providers Care Truck Service Manager Name Role Phone Coby FLOYD, Nicolasa Primary Care Provider Britt Lopes Unavailable [phone] Allergies Allergen (clinical drug ingredient) Drug/Non Drug Allergy documented on EMR Reaction Allergy Type Onset Date Status zolpidem Ambien Unknown Drug Allergy Active lorazepam Ativan Unknown Drug Allergy Active Adhesive rash Allergy Active benzodiazepine (FN) Benzodiazepines Unknown Drug Allergy Active Reason For Referral No Information Medications Medication SIG (Take, Route, Frequency, Duration) Notes Start Date End Date Status busPIRone HCl 10 MG 1 tablet Orally twic e a day (bid) Active lamoTRIgine ER 100 MG TAKE 1 TABLET BY M OUTH TWICE DAILY for 30 Active Ambien CR 12.5 MG 1 tablet at bedtime as needed Orally Once a day Active QUEtiapine Fumarate 100 MG 1 tablet at b edtime Orally Once a day for 30 day(s) Active Vistaril 25 MG 1 capsule at bedtime as needed Orally Once a day for 30 day(s) Active Social History Tobacco Use: Social History Observation Description Date Smoking Status WARNING: Information temporarily unavailable Tobacco Use Question Answer Notes Additional Findings: Tobacco User Former Smoker; Quit 06/22/1999. Never used smokeless tobacco. never vaped Problems Problem Type SNOMED Code ICD Code Onset Dates Problem Status W/U Status Risk Notes Problem Syncope and collapse (551878077) Syncope and collapse (R55) Active confirmed Plan Of Treatment No Information Insurance Providers Payer Name Payer Address Payer Phone Subscriber Number Group Number Insured Name Patient Relationship to Insured Coverage Start Date Coverage End Date [facility] [id number] [address] [address] [place], [place] [id number] [phone] [id number] Yaron Loredo Self - patient is the insured Medical (General) History Medical History History ICD Code Recurrent syncopal [...] EXTRACTION Hospitalization History Reason Date(Month/Year) Syncope - [place] [facility], 11/22/2019.
== END 2024-02-11 09:09 | disposition home or self-care (01) ==
PROVIDERS: PCP Family Medicine; Visit Provider Family Medicine
DX: R19.4 Change in bowel habit (principal); R19.5 Other fecal abnormalities; D64.9 Anemia, unspecified; R68.82 Decreased libido; R53.83 Other fatigue; F41.9 Anxiety disorder, unspecified
CPT/HCPCS: 87045; 87046; 87177; 87209; 87427; 87493; 87505

== ENCOUNTER 2024-02-13 10:45 | Outpatient (CLI) | payer BC, SELFPAY ==
--- OUTSIDE RECORDS SUMMARY | 2024-02-13 10:48 | XMS_ITS | Clinical Summary ---
Author Organization [place] Address [address] [place] [address] Care Team Providers Care Instrument Tech Name Role Phone [facility] Syst [place] [facility] Pro vider Allergies Active Allergy [...] 60.3 kg (133 lb) 03/22/2005 10:15 AM MOLDING ASSOCIATE Height 165.1 cm (5' 5) 03/02/2005 [...] 06/22/2028 06/22/2018, 08/03/2010, 07/10/2006, Additional history exists RSV VACCINE (1 - 1-dose 75+ series) 08/07/2058 HEPATITIS B IMMUNIZATION Completed 001, 06/15/2000, 06/15/2000, [...] COMPREHENSIVE METABOLIC PANEL STAT 06/21/2015 11:29 PM MOLDING ASSOCIATE CL AFF A.M.A. LIPID PANEL Routine 03/02/2005 8:45 AM CDT Routine Medical Exam HCL PAP THIN LAYER SCREEN Routine 03/02/2005 12:00 AM CDT Routine Medical Exam from Last 3 Months or Most Recently Relevant to Health Maintenance Results * Comprehensive metabolic panel (06/21/2015 11:29 PM MOLDING ASSOCIATE) Sodium 139 133 - 144 mmol/L [facility] Potassium 3.8 3.4 - 5.3 mmol/L [facility] Comment:Specimen slightly he molyzed, potassium may be falsely elevated Chloride 106 94 - 109 mmol/L [facility] Carbon Dioxide 27 20 - 32 mmol/L [facility] Anion Gap 6 3 - 14 mmol/L [facility] Glucose 90 70 - 99 mg/dL [facility] Urea Nitrogen 11 7 - 30 mg/dL [facility] Creatinine 0.56 0.52 - 1.04 mg/dL [facility] GFR Estimate >90 Non GFR Calc >60 mL/min/1. 7m2 [facility] GFR Estimate If Black >90 GFR Calc >60 mL/min/1. 7m2 [facility] Calcium 8.6 8.5 - 10.1 mg/dL [facility] Bilirubin Total 0.2 0.2 - 1.3 mg/dL [facility] Albumin 4.0 3.4 - 5.0 g/dL [facility] Protein Total 8.2 6.8 - 8.8 g/dL [facility] Alkaline Phosphatase 74 40 - 150 U/L [facility] ALT 29 0 - 50 U/L [facility] AST 20 0 - 45 U/L [facility] Comment:Reviewed, acceptable Blood specimen (specimen) 06/21/2015 11:29 PM MOLDING ASSOCIATE 06/21/2015 11:49 PM MOLDING ASSOCIATE Isha Ruiz MD LAB - BLOOD ORDERABL ES Performing Organization Address [facility] Co de Phone Number [facility] [address] [phone] * A.M.A. LIPID PANEL (03/02/2005 8:45 AM CDT) Cholesterol 126 0 - 200 mg/dL [facility] Comment: Cholesterol Reference Range: <200 ??The NCEP recommends further ? evaluation of: ? 1. ??Patients with cholesterol ? greater than 200 mg/dL ? if additional risk factors ? are present. ? 2. ??All patients with a ? cholesterol greater than ? 240 mg/dL. Triglycerides 43 0 - 150 mg/dL [facility] HDL Cholesterol 52 >40 mg/dL [facility] LDL Cholesterol Calculated 66 0 - 129 mg/dL [facility] VLDL-Cholesterol 9 0 - 30 mg/dL [facility] Cholesterol/HDL Ratio 2.4 0.0 - 5.0 [facility] 03/02/2005 8:45 AM CDT 03/02/2005 8:50 AM CDT Kelly Matthew PA-C LABORATORY Performing Organization Address City/[facility]/ZIP Co de Phone Number [facility] * (ABNORMAL) A THIN LAYER PAP SCREEN (03/02/2005 12:00 AM CDT) PAP LSIL(A) KAMALJIT Munoz Report Patient Name: ANDRES WOOD MR#: [id number] Specimen #: [id number] Collected: 03/02/2005 Received: 03/04/2005 Reported: 03/07/2005 10:41 [...] Kareem Landin M.D. Processed and screened at [facility], [facility] CLINICAL HISTORY: injection Depo-Provera, Previous normal pap Date of Last Pap: 01-06, TESTING LAB LOCATION: [facility] [address], [place] ??[address] COLLECTION SITE: Client: ??[facility] Location: CRFP (R) COPATH 03/02/2005 03/04/2005 10: 17 AM MOLDING ASSOCIATE Kelly Matthew PA-C LABORATORY COPATH from Last 3 Months or Most Recently Relevant to Health Maintenance Care Teams Instrument Tech Relationship Specialty Start Date End Date [facility] [address] [phone] PCP - General 06/22/15
--- OUTSIDE RECORDS SUMMARY | 2024-02-13 10:48 | XMS_ITS | Referral Summary ---
Author Organization [place] Address [address] [place] [address] Care Team Providers Care Flight Crew Ordnanceman Name Role Phone [facility] [place] [facility] Pro vider Allergies Active Allergy [...] 60.3 kg (133 lb) 03/22/2005 10:15 AM PACKING AND SHIPPING CLERK Height 165.1 cm (5' 5) 03/02/2005 8:00 AM CDT Body Mass Index 22.13 03/02/2005 8:00 AM CDT Plan of Treatment Not on file Procedures Procedure Name Priority Date/Time Associated Diagnosis Comments COMPREHENSIVE METABOLIC PANEL STAT 06/21/2015 11:29 PM PACKING AND SHIPPING CLERK CL AFF A.M.A. LIPID PANEL Routine 03/02/2005 8:45 AM CDT Routine Medical Exam HCL PAP THIN LAYER SCREEN Routine 03/02/2005 12:00 AM CDT Routine Medical Exam from Last 3 Months or Most Recently Relevant to Health Maintenance Results * Comprehensive metabolic panel (06/21/2015 11:29 PM PACKING AND SHIPPING CLERK) Sodium 139 133 - 144 mmol/L [facility] Potassium 3.8 3.4 - 5.3 mmol/L [facility] Comment:Specimen slightly he molyzed, potassium may be falsely elevated Chloride 106 94 - 109 mmol/L [facility] Carbon Dioxide 27 20 - 32 mmol/L [facility] Anion Gap 6 3 - 14 mmol/L [facility] Glucose 90 70 - 99 mg/dL [facility] Urea Nitrogen 11 7 - 30 mg/dL [facility] Creatinine 0.56 0.52 - 1.04 mg/dL [facility] GFR Estimate >90 Non GFR Calc >60 mL/min/1. 7m2 [facility] GFR Estimate If Black >90 GFR Calc >60 mL/min/1. 7m2 [facility] Calcium 8.6 8.5 - 10.1 mg/dL [facility] Bilirubin Total 0.2 0.2 - 1.3 mg/dL [facility] Albumin 4.0 3.4 - 5.0 g/dL [facility] Protein Total 8.2 6.8 - 8.8 g/dL [facility] Alkaline Phosphatase 74 40 - 150 U/L [facility] ALT 29 0 - 50 U/L [facility] AST 20 0 - 45 U/L [facility] Comment:Reviewed, acceptable Blood specimen (specimen) 06/21/2015 11:29 PM PACKING AND SHIPPING CLERK 06/21/2015 11:49 PM PACKING AND SHIPPING CLERK Isha Ruiz MD LAB - BLOOD ORDERABL ES Performing Organization Address City/[facility] Co de Phone Number [facility] [address] [phone] * A.M.A. LIPID PANEL (03/02/2005 8:45 AM CDT) Cholesterol 126 0 - 200 mg/dL [facility] Comment: Cholesterol Reference Range: <200 ??The NCEP recommends further ? evaluation of: ? 1. ??Patients with cholesterol ? greater than 200 mg/dL ? if additional risk factors ? are present. ? 2. ??All patients with a ? cholesterol greater than ? 240 mg/dL. Triglycerides 43 0 - 150 mg/dL [facility] HDL Cholesterol 52 >40 mg/dL [facility] LDL Cholesterol Calculated 66 0 - 129 mg/dL [facility] VLDL-Cholesterol 9 0 - 30 mg/dL [facility] Cholesterol/HDL Ratio 2.4 0.0 - 5.0 [facility] 03/02/2005 8:45 AM CDT 03/02/2005 8:50 AM CDT Kelly Matthew PA-C LABORATORY Performing Organization Address City/[facility]/ZIP Co de Phone Number [facility] * (ABNORMAL) A THIN LAYER PAP SCREEN (03/02/2005 12:00 AM CDT) PAP LSIL(A) COPATH Copath Report Patient Name: ANDRES WOOD MR#: [id number] Specimen #: [id number] Collected: 03/02/2005 Received: 03/04/2005 Reported: 03/07/2005 10:41 [...] Kareem Landin M.D. Processed and screened at [facility], [facility] CLINICAL HISTORY: injection Depo-Provera, Previous normal pap Date of Last Pap: 01-06, TESTING LAB LOCATION: [address] ??[phone] COLLECTION SITE: Client: ??[facility] Location: CRFP (R) COPATH 03/02/2005 03/04/2005 10: 17 AM PACKING AND SHIPPING CLERK Kelly Matthew PA-C LABORATORY COPATH from Last 3 Months or Most Recently Relevant to Health Maintenance Care Teams Flight Crew Ordnanceman Relationship Specialty Start Date End Date [facility], [facility] [place] [address] [place] [address] PCP - General 06/22/15
--- OUTSIDE RECORDS SUMMARY | 2024-02-13 10:48 | XMS_ITS | Encounter Summary ---
Author Organization [place] Address [address] [place] [address] Care Team Providers Care Lace Finisher Name Role Phone [facility] Primary Care Pro vider Encounter Details Date [...] on filedocumented in this encounter Care Teams Lace Finisher Relationship Specialty Start Date End Date [facility] [address] [place] [address] PCP - General 06/22/15 documented as of this encounter
--- OUTSIDE RECORDS SUMMARY | 2024-02-13 10:48 | XMS_ITS | Patient Health Record ---
Author Organization [facility] Address [address] [place] [address] Care Team Providers Care Wheel Presser Name Role Phone Coby FLOYD, Nicolasa Primary Care Provider Britt Lopes Unavailable [phone] Allergies Allergen (clinical drug ingredient) Drug/Non Drug [...] Status Risk Notes Problem Syncope and collapse ([id number]) Syncope and collapse (R55) Active confirmed Plan Of Treatment No Information Insurance Providers Payer Name Payer Address Payer Phone Subscriber Number Group Number Insured Name Patient Relationship to Insured Coverage Start Date Coverage End Date [facility] [id number] [address] [address] [place], [place] [id number] Yaron Loredo Self - patient is the [...] EXTRACTION Hospitalization History Reason Date(Month/Year) Syncope - [place] [facility], 11/22/2019.
== END 2024-02-13 10:46 | disposition home or self-care (01) ==
PROVIDERS: PCP Family Medicine; Visit Provider Family Medicine
DX: R19.5 Other fecal abnormalities (principal)
CPT/HCPCS: 87505

== ENCOUNTER 2024-03-26 14:51 | Outpatient (CLI) | payer BC, SELFPAY ==
--- OUTSIDE RECORDS SUMMARY | 2024-03-26 14:53 | XMS_ITS | Referral Summary ---
Author Organization [place] Address [address] [place] [address] Care Team Providers Care Bookbinder Chief Name Role Phone [facility] Syst [place] [facility] Pro vider Allergies Active Allergy Reactions Criticality Noted Date Comments Zolpidem 06/21/2015 Benzodiazepines Fatigue 12/14/2003 Ativan Medications Medication Sig Dispense Quantity Refills Last Filled Start D ate End Date Status AMOXICILLIN PO Activ e Active Problems Problem Noted Date Diagnosed Date Depressive disorder, not elsewhere classified Insomnia 04/13/2005 Overview (02/02/2015): Problem list name updated by automated process. [...] School Help Needed Not on file 02/09 Comments No Sex and Gender Information Value Date Recorded Sex Assigned at Not on file Legal Sex Female 3:13 AM CONCRETE PAVER Gender Identity Not on file Sexual Orientation Not on file Occupation Industry Job Start Date Job End Date RN Not on file Not on file Not on file Last Filed Vital Signs Vital Sign Reading Time Taken Comments Blood Pressure 118/80 08/21/2021 7:57 PM CDT Pulse 101 08/21/2021 2:14 PM CDT Temperature 36.9 C (98.4 F) 08/21/2021 2:14 PM CDT Respiratory Rate 18 08/21/2021 2:14 PM CDT Oxygen Saturation 99% 08/21/2021 7:57 PM CDT Inhaled Oxygen Concentration - - Weight 60.3 kg (133 lb) 03/22/2005 10:15 AM CONCRETE PAVER Height 165.1 cm (5' 5) 03/02/2005 8:00 AM CDT Body Mass Index 22.13 03/02/2005 8:00 AM CDT Plan of Treatment Not on file Procedures Procedure Name Priority Date/Time Associated Diagnosis Comments COMPREHENSIVE METABOLIC PANEL STAT 06/21/2015 11:29 PM CONCRETE PAVER CL AFF A.M.A. LIPID PANEL Routine 03/02/2005 8:45 AM CDT Routine Medical Exam HCL PAP THIN LAYER SCREEN Routine 03/02/2005 12:00 AM CDT Routine Medical Exam from Last 3 Months or Most Recently Relevant to Health Maintenance Results * Comprehensive metabolic panel (06/21/2015 11:29 PM CONCRETE PAVER) Sodium 139 133 - 144 mmol/L [facility] [...] acceptable Blood specimen (specimen) 06/21/2015 11:29 PM CONCRETE PAVER 06/21/2015 11:49 PM CONCRETE PAVER Isha Ruiz MD LAB - BLOOD ORDERABLES Final Result Performing Organization Address City/[facility]/ZIP Co de Phone Number [facility] [address] [place], [place] [address] [phone] * A.M.A. LIPID PANEL (03/02/2005 8:45 AM CDT) Cholesterol 126 0 - 200 mg/dL [facility]3] Comment: Cholesterol Reference Range: <200 The NCEP recommends further evaluation of: 1. Patients with cholesterol greater than 200 mg/dL if additional risk factors are present. 2. All patients with a cholesterol greater than 240 mg/dL. Triglycerides 43 0 - 150 mg/dL [facility]3] HDL Cholesterol 52 >40 mg/dL [facility] LDL Cholesterol Calculated 66 0 - 129 mg/dL [facility]3] VLDL-Cholesterol 9 0 - 30 mg/dL [facility]3] Cholesterol/HDL Ratio 2.4 0.0 - 5.0 [facility]3] 03/02/2005 8:45 AM CDT 03/02/2005 8:50 AM CDT us Kelly Matthew PA-C LABORATORY Final Res ult Performing Organization Address City/[facility]/ZIP Co de Phone Number [facility]3] [address] [place] [address] * (ABNORMAL) A THIN LAYER PAP SCREEN (03/02/2005 12:00 AM CDT) PAP LSIL(A) COPATH Copath Report Patient Name: ANDRES WOOD MR#: [id number] Specimen #: [id number] Collected: 03/02/2005 Received: 03/04/2005 Reported: 03/07/2005 10:41 Ordering Phy(s): KELLY MATTHEW SPECIMEN/STAIN PROCESS: Pap thin layer prep screening (Sure[facility]) Pap-Cyto x 1, Reflex HPV x 1 SOURCE: Cervical, endocervical Pap thin layer prep screening ([facility]) SPECIMEN ADEQUACY: Satisfactory for evaluation. -Transitional zone component present. CYTOLOGIC INTERPRETATION: Epithelial Cell Abnormality: Squamous Cell: Low-grade squamous intraepithelial lesion (LSIL) encompassing: HPV/ mild dysplasia/ JAYMIE 1. Electronically signed out by: Kareem Landin M.D. Processed and screened at [facility] CLINICAL HISTORY: injection Depo-Provera, Previous normal pap Date of Last Pap: 01-06, TESTING LAB LOCATION: [address] [address] COLLECTION SITE: Client: [facility] Location: CRFP (R) COPATH 03/02/2005 03/04/2005 10: 17 AM CONCRETE PAVER us Kelly Matthew PA-C LABORATORY Final Res ult COPATH from Last 3 Months or Most Recently Relevant to Health Maintenance Insurance [facility] [address] [id number] Care Teams Bookbinder Chief Relationship Specialty Start Date End Date [facility], [facility] [address] [place] [phone] PCP - General 06/22/15
--- OUTSIDE RECORDS SUMMARY | 2024-03-26 14:53 | XMS_ITS | Clinical Summary ---
Author Organization [facility] [place] [address] Care Team Providers Care Apiculture Teacher Name Role Phone Nicolasa Tenorio MD Primary [...] Spinal Livin g 9 9 Trig Delivery Location:[facility] Comments:PROM 013 36w 4d 2.88 kg (6 lb 5.6 oz) F C-Sec tion Spinal N Livin g 9 10 BG Comments:SGA, failed B PP Last Filed Vital Signs Vital Sign Reading Time Taken Comments Blood Pressure 104/53 12/04/2021 9:00 AM CDT Pulse 79 12/04/2021 9:00 AM CDT Temperature 36.7 C (98 F) 12/04/2021 9:00 AM CDT Respiratory Rate 18 [...] season) 2024 Influenza for age 9-49 01/04/2024 3, 04/03/2012, 04/03/2012, Additional history exists Tetanus [...] 2:07 PM 07/18/2013 1:50 PM Care Teams Apiculture Teacher Relationship Specialty Start Date End Date Nicolasa Tenorio MD [address] [place] [address] PCP - General Family Practice 11/03/19
--- OUTSIDE RECORDS SUMMARY | 2024-03-26 14:53 | XMS_ITS | Encounter Summary ---
Author Organization [place] Address [address] [facility] [place] [address] Care Team Providers Care Supervisor Cigar Making Hand Name Role Phone [facility] [place] [facility] Pro vider Encounter Details Date Type Department Care Team (Late st Contact Info) Description 08/22/2021 Documentation Only INTERFACED REPORT Unknown, Provider Social History Tobacco Use Types Packs/Day Years Used Date Smoking Tobacco: Former Comments:smoked casually for a very short time Alcohol Use Standard Drinks/Week Comments Yes 0 (1 standard drink = 0.6 oz pur e alcohol) <once/monthly Comments No Sex and Gender Information Value Date Recorded Sex Assigned at Not on file Legal Sex Female 3:13 AM STEAMBOAT INSPECTOR Gender Identity Not on file Sexual Orientation Not on file Occupation Industry Job Start Date Job End Date RN Not on file Not on file Not on file COVID-19 Exposure Response Date Recorded In the last 10 days, have yo u been in contact with someone who was confirmed or suspected to have Coronavirus/COVID-19? No / Unsure 08/21/2021 2:08 PM CDT documented as of this encounter Plan of Treatment Not on file documented as of this encounter Visit Diagnoses Not on filedocumented in this encounter Care Teams Supervisor Cigar Making Hand Relationship Specialty Start Date End [facility] [address] [place] [address] PCP - General 06/22/15 documented as of this encounter
--- OUTSIDE RECORDS SUMMARY | 2024-03-26 14:53 | XMS_ITS | Clinical Summary ---
Author Organization [place] Address [address] [place] [address] Care Team Providers Care Director Facilities Maintenance Name Role Phone [facility] Syst [place] Primary [facility] Pro vider Allergies Active Allergy [...] on file Legal Sex Female 3:13 AM KNOBBER Gender Identity Not on file Sexual Orientation [...] 60.3 kg (133 lb) 03/22/2005 10:15 AM KNOBBER Height 165.1 cm (5' 5) 03/02/2005 8:00 [...] COMPREHENSIVE METABOLIC PANEL STAT 06/21/2015 11:29 PM KNOBBER CL AFF A.M.A. LIPID PANEL Routine 03/02/2005 8:45 AM CDT Routine Medical Exam HCL PAP THIN LAYER SCREEN Routine 03/02/2005 12:00 AM CDT Routine Medical Exam from Last 3 Months or Most Recently Relevant to Health Maintenance Results * Comprehensive metabolic panel (06/21/2015 11:29 PM KNOBBER) Sodium 139 133 - 144 mmol/L [facility] Potassium 3.8 3.4 - 5.3 mmol/L [facility] Comment:Specimen slightly he molyzed, potassium may be falsely elevated Chloride 106 94 - 109 mmol/L [facility] Carbon Dioxide 27 20 - 32 mmol/L [facility] Anion Gap 6 3 - 14 mmol/L [facility] Glucose 90 70 - 99 mg/dL [facility] Urea Nitrogen 11 7 - 30 mg/dL [facility] Creatinine 0.56 0.52 - 1.04 mg/dL [facility] GFR Estimate >90 Non GFR Calc >60 mL/min/1. 7m2 [facility] GFR Estimate If Black >90 GFR Calc >60 mL/min/1. 7m2 [facility] Calcium 8.6 8.5 - 10.1 mg/dL [facility] Bilirubin Total 0.2 0.2 - 1.3 mg/dL [facility] Albumin 4.0 3.4 - 5.0 g/dL [facility] Protein Total 8.2 6.8 - 8.8 g/dL [facility] Alkaline Phosphatase 74 40 - 150 U/L [facility] ALT 29 0 - 50 U/L [facility] AST 20 0 - 45 U/L [facility] Comment:Reviewed, acceptable Blood specimen (specimen) 06/21/2015 11:29 PM KNOBBER 06/21/2015 11:49 PM KNOBBER Isha Ruiz MD LAB - BLOOD ORDERABLES Final Result Performing Organization Address City/[facility]/ZIP Co de Phone Number [facility] [address] [place] [address], [facility] [phone] * A.M.A. LIPID PANEL (03/02/2005 8:45 AM CDT) Cholesterol 126 0 - 200 mg/dL [facility] Comment: Cholesterol Reference Range: <200 The NCEP recommends further evaluation of: 1. Patients with cholesterol greater than 200 mg/dL if additional risk factors are present. 2. All patients with a cholesterol greater than 240 mg/dL. Triglycerides 43 0 - 150 mg/dL [facility] HDL Cholesterol 52 >40 mg/dL [facility] LDL Cholesterol Calculated 66 0 - 129 mg/dL [facility] VLDL-Cholesterol 9 0 - 30 mg/dL [facility] Cholesterol/HDL Ratio 2.4 0.0 - 5.0 [facility] 03/02/2005 8:45 AM CDT 03/02/2005 8:50 AM CDT Kelly Matthew PA-C LABORATORY Final Res ult Performing Organization Address City/[facility]/ZIP Co de Phone Number [facility] [address] [place], [place] [phone] * (ABNORMAL) A THIN LAYER PAP SCREEN (03/02/2005 12:00 AM CDT) PAP LSIL(A) KAMALJIT Munoz Report Patient Name: YARON WOOD MR#: [id number] Specimen #: [id number] Collected: 03/02/2005 Received: 03/04/2005 Reported: 03/07/2005 10:41 [...] Kareem Landin M.D. Processed and screened at [facility] CLINICAL HISTORY: injection Depo-Provera, Previous normal pap Date of Last Pap: 01-06, TESTING LAB LOCATION: [facility] [address] [phone] COLLECTION SITE: Client: [facility] Location: CRFP (R) COPATH 03/02/2005 03/04/2005 10: 17 AM KNOBBER Kelly Matthew PA-C LABORATORY Final Res ult COPATH from Last 3 Months or Most Recently Relevant to Health Maintenance Insurance [facility] [address] [place] [address] Care Teams Director Facilities Maintenance Relationship Specialty Start Date End Date [facility], [facility] [address] [address] PCP - General 06/22/15
--- NOTE | 2024-03-26 15:00 | CRLHL7_ITS ---
For Patients: As a result of the Century Cures Act, medical imaging exams and procedure reports are released immediately into your electronic medical record. You may view this report before your referring provider. If you have questions, please contact your health care provider. Indication: Chronic sinusitis. Technique: Noncontrast axial CT of the paranasal sinuses with coronal reformats are provided. No comparisons. Findings: The visualized paranasal sinuses are clear. The ostiomeatal complexes are patent bilaterally. The visualized intraorbital contents appear within normal limits. Impression: Unremarkable CT of the paranasal sinuses. Please note that all CT scans at this facility use dose modulation, iterative reconstruction, and/or weight-based dosing when appropriate to reduce radiation dose to as low as reasonably achievable. Dictated by Patrick Covarrubias MD @ 03/26/2024 9:01:19 PM (Electronically Signed)
== END 2024-03-26 14:52 | disposition home or self-care (01) ==
LOC: CT 14:51
PROVIDERS: PCP Family Medicine; Visit Provider Otolaryngology
DX: J32.9 Chronic sinusitis, unspecified (principal)
CPT/HCPCS: 70486

== ENCOUNTER 2024-04-05 14:10 | Outpatient (CLI) | payer BC, SELFPAY ==
--- OUTSIDE RECORDS SUMMARY | 2024-04-05 14:13 | XMS_ITS | Referral Summary ---
Author Organization [place] Address [address] [place] [address] Care Team Providers Care Cost Estimating Manager Name Role Phone [facility] [place] [facility] Pro vider Allergies Active Allergy [...] on file Legal Sex Female 3:13 AM DIRECTOR CUSTOMER Gender Identity Not on file Sexual Orientation [...] 60.3 kg (133 lb) 03/22/2005 10:15 AM DIRECTOR CUSTOMER Height 165.1 cm (5' 5) 03/02/2005 8:00 AM CDT Body Mass Index 22.13 03/02/2005 8:00 AM CDT Plan of Treatment Not on file Procedures Procedure Name Priority Date/Time Associated Diagnosis Comments COMPREHENSIVE METABOLIC PANEL STAT 06/21/2015 11:29 PM DIRECTOR CUSTOMER CL AFF A.M.A. LIPID PANEL Routine 03/02/2005 8:45 AM CDT Routine Medical Exam HCL PAP THIN LAYER SCREEN Routine 03/02/2005 12:00 AM CDT Routine Medical Exam from Last 3 Months or Most Recently Relevant to Health Maintenance Results * Comprehensive metabolic panel (06/21/2015 11:29 PM DIRECTOR CUSTOMER) Sodium 139 133 - 144 mmol/L [facility] Potassium 3.8 3.4 - 5.3 mmol/L [facility] Comment:Specimen slightly he molyzed, potassium may be falsely elevated Chloride 106 94 - 109 mmol/L [facility] Carbon Dioxide 27 20 - 32 mmol/L [facility] Anion Gap 6 3 - 14 mmol/L [facility] Glucose 90 70 - 99 mg/dL [facility] Urea Nitrogen 11 7 - 30 mg/dL [facility] Creatinine 0.56 0.52 - 1.04 mg/dL [facility] GFR Estimate >90 Non GFR Calc >60 mL/min/1. 7m2 [facility] GFR Estimate If Black >90 GFR Calc >60 mL/min/1. 7m2 [facility] Calcium 8.6 8.5 - 10.1 mg/dL [facility] Bilirubin Total 0.2 0.2 - 1.3 mg/dL [facility] Albumin 4.0 3.4 - 5.0 g/dL [facility] Protein Total 8.2 6.8 - 8.8 g/dL [facility] Alkaline Phosphatase 74 40 - 150 U/L [facility] ALT 29 0 - 50 U/L [facility] AST 20 0 - 45 U/L [facility] Comment:Reviewed, acceptable Blood specimen (specimen) 06/21/2015 11:29 PM DIRECTOR CUSTOMER 06/21/2015 11:49 PM DIRECTOR CUSTOMER Isha Ruiz MD LAB - BLOOD ORDERABLES Final Result Performing Organization Address City/[facility]/ZIP Co de Phone Number [facility] [address] [place], [place] [address] [phone] * A.M.A. LIPID PANEL (03/02/2005 8:45 AM CDT) Cholesterol 126 0 - 200 mg/dL [facility] Comment: Cholesterol Reference Range: <200 The NCEP recommends further evaluation of: 1. Patients with cholesterol greater than 200 mg/dL if additional risk factors are present. 2. All patients with a cholesterol greater than 240 mg/dL. Triglycerides 43 0 - 150 mg/dL [facility] HDL Cholesterol 52 >40 mg/dL [facility] LDL Cholesterol Calculated 66 0 - 129 mg/dL [facility] VLDL-Cholesterol 9 0 - 30 mg/dL [facility] Cholesterol/HDL Ratio 2.4 0.0 - 5.0 [facility] 03/02/2005 8:45 AM CDT 03/02/2005 8:50 AM CDT us Kelly Matthew PA-C LABORATORY Final Res ult Performing Organization Address City/[facility]/ZIP Co de Phone Number [facility] [address] [place] [address] * (ABNORMAL) A THIN LAYER PAP SCREEN (03/02/2005 12:00 AM CDT) PAP LSIL(A) COPATH Copath Report Patient Name: ANDRES WOOD MR#: [id number] Specimen #: [id number] Collected: 03/02/2005 Received: 03/04/2005 Reported: 03/07/2005 10:41 [...] Kareem Landin M.D. Processed and screened at [facility], [facility] CLINICAL HISTORY: injection Depo-Provera, Previous normal pap Date of Last Pap: 01-06, TESTING LAB LOCATION: [address] [address] COLLECTION SITE: Client: [facility] Location: CRFP (R) COPATH 03/02/2005 03/04/2005 10: 17 AM DIRECTOR CUSTOMER us Kelly Matthew PA-C LABORATORY Final Res ult COPATH from Last 3 Months or Most Recently Relevant to Health Maintenance Insurance [facility] [address] [place] [id number] Care Teams Cost Estimating Manager Relationship Specialty Start Date End Date [facility], [facility] [address] [place] [phone] PCP - General 06/22/15
--- OUTSIDE RECORDS SUMMARY | 2024-04-05 14:13 | XMS_ITS | Clinical Summary ---
Author Organization [employer] [facility] Address [place], [place] [address] Care Team Providers Care Driver Recruiter Name Role Phone Nicolasa Tenorio MD Primary [...] Spinal Livin g 9 9 Trig Delivery [facility] Comments:PROM 013 36w [...] 2:07 PM 07/18/2013 1:50 PM Care Teams Driver Recruiter Relationship Specialty Start Date End Date Nicolasa Tenorio MD [address] [place] [address] PCP - General Family Practice 11/03/19
--- OUTSIDE RECORDS SUMMARY | 2024-04-05 14:13 | XMS_ITS | Encounter Summary ---
Author Organization [place] Address [address] [facility] [place] [address] Care Team Providers Care Regional Vice President Life Sales Name Role Phone [facility] [facility] Pro vider Encounter Details Date [...] on file Legal Sex Female 3:13 AM FEED RESEARCH AIDE Gender Identity Not on file Sexual Orientation [...] on filedocumented in this encounter Care Teams Regional Vice President Life Sales Relationship Specialty Start Date End [facility] [address] [place] [address] PCP - General 06/22/15 documented as of this encounter
--- OUTSIDE RECORDS SUMMARY | 2024-04-05 14:13 | XMS_ITS | Clinical Summary ---
Author Organization [place] Address [address] [place] [address] Care Team Providers Care Assessment Coordinator Name Role Phone [facility] [place] [facility] Pro vider Allergies Active Allergy [...] on file Legal Sex Female 3:13 AM SIDE LASTER STAPLE Gender Identity Not on file Sexual Orientation [...] 60.3 kg (133 lb) 03/22/2005 10:15 AM SIDE LASTER STAPLE Height 165.1 cm (5' 5) 03/02/2005 8:00 [...] COMPREHENSIVE METABOLIC PANEL STAT 06/21/2015 11:29 PM SIDE LASTER STAPLE CL AFF A.M.A. LIPID PANEL Routine 03/02/2005 8:45 AM CDT Routine Medical Exam HCL PAP THIN LAYER SCREEN Routine 03/02/2005 12:00 AM CDT Routine Medical Exam from Last 3 Months or Most Recently Relevant to Health Maintenance Results * Comprehensive metabolic panel (06/21/2015 11:29 PM SIDE LASTER STAPLE) Sodium 139 133 - 144 mmol/L [facility] Potassium 3.8 3.4 - 5.3 mmol/L [facility] Comment:Specimen slightly he molyzed, potassium may be falsely elevated Chloride 106 94 - 109 mmol/L [facility] Carbon Dioxide 27 20 - 32 mmol/L [facility] Anion Gap 6 3 - 14 mmol/L [facility] Glucose 90 70 - 99 mg/dL [facility] Urea Nitrogen 11 7 - 30 mg/dL [facility] Creatinine 0.56 0.52 - 1.04 mg/dL [facility] GFR Estimate >90 Non GFR Calc >60 mL/min/1. 7m2 [facility] GFR Estimate If Black >90 GFR Calc >60 mL/min/1. 7m2 [facility] Calcium 8.6 8.5 - 10.1 mg/dL [facility] Bilirubin Total 0.2 0.2 - 1.3 mg/dL [facility] Albumin 4.0 3.4 - 5.0 g/dL [facility] Protein Total 8.2 6.8 - 8.8 g/dL [facility] Alkaline Phosphatase 74 40 - 150 U/L [facility] ALT 29 0 - 50 U/L [facility] AST 20 0 - 45 U/L [facility] Comment:Reviewed, acceptable Blood specimen (specimen) 06/21/2015 11:29 PM SIDE LASTER STAPLE 06/21/2015 11:49 PM SIDE LASTER STAPLE Isha Ruiz MD LAB - BLOOD ORDERABLES Final Result Performing Organization Address City/[facility]/ZIP Co de Phone Number [facility] [address] [place] [address], [facility] [phone] * A.M.A. LIPID PANEL (03/02/2005 8:45 AM CDT) Cholesterol 126 0 - 200 mg/dL [facility] Comment: Cholesterol Reference Range: <200 The NCEP recommends further evaluation of: 1. Patients with cholesterol greater than 200 mg/dL if additional risk factors are present. 2. All patients with a cholesterol greater than 240 mg/dL. Triglycerides 43 0 - 150 mg/dL [facility] HDL Cholesterol 52 >40 mg/dL [facility] LDL Cholesterol Calculated 66 0 - 129 mg/dL [facility] VLDL-Cholesterol 9 0 - 30 mg/dL [facility] Cholesterol/HDL Ratio 2.4 0.0 - 5.0 [facility] 03/02/2005 8:45 AM CDT 03/02/2005 8:50 AM CDT Kelly Matthew PA-C LABORATORY Final Res ult Performing Organization Address City/[facility]/ZIP Co de Phone Number [facility] [address] [place], [place] [id number] * (ABNORMAL) A THIN LAYER PAP SCREEN (03/02/2005 12:00 AM CDT) PAP LSIL(A) KAMALJIT Munoz Report Patient Name: ANDRES WOOD MR#: [id number] Specimen #: [id number] Collected: 03/02/2005 Received: 03/04/2005 Reported: 03/07/2005 10:41 [...] Kareem Landin M.D. Processed and screened at [facility], [facility] CLINICAL HISTORY: injection Depo-Provera, Previous normal pap Date of Last Pap: 01-06, TESTING LAB LOCATION: [facility] [address] [phone] COLLECTION SITE: Client: [facility] Location: CRFP (R) COPATH 03/02/2005 03/04/2005 10: 17 AM SIDE LASTER STAPLE Kelly Matthew PA-C LABORATORY Final Res ult COPATH from Last 3 Months or Most Recently Relevant to Health Maintenance Insurance [facility] [address] [place] [address] Care Teams Assessment Coordinator Relationship Specialty Start Date End Date [facility], [facility] [address] [address] PCP - General 06/22/15
--- NOTE | 2024-04-21 09:08 | W.PM.SLEEP ---
Sleep Study Details Details Interpreting Provider: Eddie Date of Sleep Study: 04/05/24 Sleep Study Details: STUDY TYPE:? Home unattended ? BMI:? 32.9 ORDERING PROVIDER:? Eddie INDICATION:? Concern about sleep apnea ? SLEEP SUMMARY:? 322 minutes monitored RESPIRATORY SUMMARY:? AHI 5.4 Low oxygen 78 5.3% of study oxygen less than 90% Snoring 100% PERIODIC LIMB MOVEMENTS OF SLEEP:? Not recorded CARDIAC:? Range 61-123, mean 99.7 beats per minute IMPRESSION:? Mild obstructive sleep apnea with significant desaturations RECOMMENDATION: Treatment options include CPAP or dental appliance. Airway expansion surgery is also possible.
== END 2024-04-05 14:11 | disposition home or self-care (01) ==
PROVIDERS: PCP Family Medicine; Visit Provider Otolaryngology
DX: G47.33 Obstructive sleep apnea (adult) (pediatric) (principal)
CPT/HCPCS: 95806

== ENCOUNTER 2024-07-09 11:44 | Day surgery (SDC) | payer BC, SELFPAY ==
[2024-07-09] VITALS (11 sets, daily range): BP systolic 112–135; BP diastolic 67–105; PULSE 81–113; RESP 15–20; TEMP 36.4–36.9; O2SAT 94–98; BMI 29.5
[2024-07-09] MEDS: OXYMETAZOLINE 0.05% NASAL SPRAY 2 SPRAY NOSTRIL-B (12:18)
[2024-07-09] MEDS: 0.9 % SODIUM CHLORIDE 500 ML 500 ML 100 ML IV (12:35)
[2024-07-09] MEDS: SODIUM CHLORIDE 0.9 % (FLUSH) 10 ML SYRINGE IVF (12:35)
[2024-07-09] MEDS: COCAINE HCL 4 % 4 ML SOLUTION NOSTRIL-B (13:53)
[2024-07-09] MEDS: BUPIVACAINE 0.5%/EPINEPHRINE 0.9 MG (30.9 ML) INJECTION (14:00)
[2024-07-09] MEDS: AYR SALINE NASAL GEL 1 APPLIC NOSTRIL-B (14:01)
[2024-07-09] MEDS: MUPIROCIN 1 GM PACKET 1 APPLIC TOPICAL (14:08)
--- NOTE | 2024-07-09 14:27 | W.ANESCHARGE ---
Anesthesia Charges Start Date/Time Anesthesia Start Date: 07/09/24 Anesthesia Start Time: 13:41 Stop Date/Time Anesthesia Stop Date: 07/09/24 Anesthesia Stop Time: 14:26 Coding CPT Codes CPT Codes: ANESTH NOSE/SINUS SURGERY - 40799 ([id number]) QK - INSPECTOR MULTIFOCAL LENS 2-4 CNCRNT ANES PROC, QX - MEAT PROCESSING CENTER MANAGER SVC W/ MD MED DIRECTION, P2 - PATIENT W/MILD SYST DISEASE
--- NOTE | 2024-07-09 14:31 | W.ANESCHARGE ---
Anesthesia Charges Start Date/Time Anesthesia Start Date: 07/09/24 Anesthesia Start Time: 13:41 Stop Date/Time Anesthesia Stop Date: 07/09/24 Anesthesia Stop Time: 14:26 Coding CPT Codes CPT Codes: ANESTH NOSE/SINUS SURGERY - 11582 ([id number]) P2 - PATIENT W/MILD SYST DISEASE, QK - MEDICAL MANAGER 2-4 CNCRNT ANES PROC, QX - PARTNER ALLIANCE MANAGER SVC W/ MD MED DIRECTION
--- NOTE | 2024-07-09 14:34 | W.PM.ENTPROC ---
Procedure Note Date of procedure: 07/09/24 Procedure: Preop diagnosis nasal obstruction, nasal headache, deviated septum, right inferior turbinate hypertrophy, right middle turbinate hypertrophy Postoperative diagnosis same Procedure nasal septoplasty, submucous partial resection right inferior turbinate, crushing of right middle turbinate Under general trach anesthesia patient was prepped draped usual fashion nose decongested injected. A right hemitransfixion incision was made. Left anterior and posterior tunnels were created a vertical incision made through the cartilage and a right posterior tunnel created. The deflected portions of septum including the left area 5 impaction resected. A large piece of bone was trimmed and returned to the posterior intraseptal space. The hemitransfixion was closed with 2 4-0 chromic sutures. The right middle turbinate was simply crushed with the Clint forceps. A stab incision was made in the anterior of the right inferior turbinate a tunnel created with a Pepin dissector. A conservative anterior submucous resection was performed with Esme forceps. The Coblation was used for hemostasis in this area and to cauterize intramurally along the inferior 10%. The turbinate was also outfractured. Silastic stents were secured on either side of the septum with 3-0 nylon. Merocel coated in Bactroban was placed in each side of the nose near the middle meatal region. The patient procedure well was taken recovery in satisfactory condition. Blood loss was less than 20 mL. Surgeon: Jayant Morgan MD
[2024-07-09] MEDS: ACETAMINOPHEN 325 MG TABLET PO (15:09)
[2024-07-09] MEDS: IBUPROFEN 200 MG TABLET PO (15:09)
[2024-07-09] MEDS: OXYCODONE 5 MG TABLET PO (15:09)
--- NOTE | 2024-07-09 15:10 | SUR.PHASEII ---
Patient returned to phase II awake and oriented, rated her pain as a 6. Patient tolerated water, ice chips, apple sauce.
--- NOTE | 2024-07-09 15:46 | SUR.PHASEII ---
Patient verbalized readiness to be discharged and understanding of discharge instructions. Drip pad changed x1. Provided patient with extra drip pads, tape, torin dressing gallagher upon discharge.
== END 2024-07-09 15:42 | disposition home or self-care (01) ==
LOC: OR 11:45
PROVIDERS: PCP Family Medicine; Visit Provider Otolaryngology
PROC: (CPT 30520; principal; 2024-07-09 13:30)
DX: J34.2 Deviated nasal septum (principal); J34.3 Hypertrophy of nasal turbinates; R51.9 Headache, unspecified; J34.89 Other specified disorders of nose and nasal sinuses
CPT/HCPCS: 30520; 30140; 30999; 00160; A9270; J0330; J1100; J1200; J2250; J2405; J2704; J3010; J7030

== ENCOUNTER 2024-11-25 14:08 | Outpatient (CLI) | payer BC, SELFPAY | END 2024-11-25 14:09 | disposition home or self-care (01) | LOC: NFLDREF 14:09 | PROVIDERS: PCP Family Medicine; Visit Provider Obstetrics & Gynecology | DX: E28.39 Other primary ovarian failure (principal); Z79.890 Hormone replacement therapy | CPT/HCPCS: 84403 ==

== ENCOUNTER 2025-03-22 12:43 | Outpatient (CLI) | payer BC, SELFPAY ==
--- NOTE | 2025-03-22 13:20 | CRLHL7_ITS ---
For Patients: As a result of the Century Cures Act, medical imaging exams and procedure reports are released immediately into your electronic medical record. You may view this report before your referring provider. If you have questions, please contact your health care provider. INDICATION: BILATERAL SCREENING MAMMOGRAM, ASYMPTOMATIC 39 Y/O FEMALE COMPARISON: 10/20/2019 TECHNIQUE: Digital mammogram in CC and MLO projections including computer-aided detection (CAD) and tomosynthesis. BREAST COMPOSITION: The breasts are extremely dense, which lowers the sensitivity of mammography. FINDINGS: No suspicious findings. ASSESSMENT: BI-RADS 1 Negative RECOMMENDATION: Annual screening mammogram. A lay language report of this examination will be provided to the patient. Dictated by: David Uribe MD @ 03/23/2025 09:12:14 (Electronically Signed)
== END 2025-03-22 12:44 | disposition home or self-care (01) ==
LOC: MAMMO 12:44
PROVIDERS: PCP Family Medicine; Visit Provider Obstetrics & Gynecology
DX: Z12.31 Encounter for screening mammogram for malignant neoplasm of breast (principal); R92.343 Mammographic extreme density, bilateral breasts
CPT/HCPCS: 77063; 77067